=== PATIENT | male | born 1995 | race Caucasian/White ===

== ENCOUNTER 2021-04-16 11:00 | Emergency (ER) | payer OTHER ==
[~2021-04-16] VITALS: Ht 180.3 cm; Wt 67.0 kg
[2021-04-16] MEDS ORDERED: ALBUTEROL 90 MCG/ACT 8GM HFA INHALER INH ONE (15:45)
[2021-04-16 16:16] VITALS: O2SAT 100
--- NOTE | 2021-04-16 16:16 | REP ---
INDICATION: Coronavirus workup COMPARISON: None. TECHNIQUE: Portable AP view of the chest FINDINGS: The mediastinum and cardiac silhouette are stable and within normal limits for portable technique. The lung kohli are clear without acute consolidation, effusion, or pneumothorax. Skeletal structures are intact. IMPRESSION: No acute cardiopulmonary process appreciated. <Electronically signed by Kaleb Alvarado > 04/16/21 [id number]
[2021-04-16 16:25] LABS: HEMATOCRIT 47.8 % (42.0-52.0); HEMOGLOBIN 15.7 g/dl (13.5-17.5); MEAN CORPUSCULAR HEMOGLOBIN 28.8 pg (27.0-33.0); MEAN CORPUSCULAR HGB CONC 32.8 g/dl (32.0-36.5); MEAN CORPUSCULAR VOLUME 87.7 fl (80.0-96.0); PLATELET COUNT, AUTOMATED 123 10^3/uL (150-450); RED BLOOD COUNT 5.45 10^6/uL (4.30-6.10)
[2021-04-16 16:49] LABS: ALBUMIN 4.1 GM/DL (3.2-5.2); ALT/SGPT 454 U/L (12-78); BILIRUBIN,TOTAL 0.9 MG/DL (0.2-1.0); BLOOD UREA NITROGEN 13 MG/DL (7-18); CALCIUM LEVEL 9.6 MG/DL (8.5-10.1); CARBON DIOXIDE LEVEL 29 MEQ/L (21-32); CHLORIDE LEVEL 103 MEQ/L (98-107); CK-MB VALUE MASS < 1.0 NG/ML (<3.6); CPK CREATINE PHOSPHOKINASE 88 U/L (39-308); CREATININE FOR GFR 1.08 MG/DL (0.70-1.30); GLOMERULAR FILTRATION RATE > 60.0 (>60); GLUCOSE, FASTING 82 MG/DL (70-100); LDH LACTATE DEHYDROGENASE 778 U/L (87-241); MB/CK RELATIVE INDEX 1.14 (< OR =4); POTASSIUM SERUM 4.5 MEQ/L (3.5-5.1); SODIUM LEVEL 136 MEQ/L (136-145); TOTAL PROTEIN 8.4 GM/DL (6.4-8.2); TROPONIN I < 0.02 NG/ML (< 0.10)
[2021-04-16 16:55] LABS: ATYPICAL LYMPH 26 % (0-5); LYMPHOCYTES 57 % (16-44); MONOCYTES 3 % (0-5); MYELOCYTES 2 % (0-0); NEUTROPHILS 11 % (28-66)
[2021-04-16 16:56] LABS: PLATELET ESTIMATE DECREASED (NORMAL)
[2021-04-16 17:41] LABS: MONO REFLEX EBV COMP POSITIVE (NEGATIVE)
[2021-04-16] MEDS ORDERED: ISOVUE-370 76% 100ML VIAL As Ordered ONE (18:15)
--- NOTE | 2021-04-16 18:34 | REP ---
INDICATION: abd pain, elevated lfts, mono, check GB/liver/spleen please TECHNIQUE: Real time B-mode reed scale ultrasound examination using curved array transducer. FINDINGS: Liver, and pancreas are normal in contour, size, echogenicity, and overall appearance. No focal hepatic or pancreatic lesions are identified. Spleen measures 13.7 x 13.1 x 6.7 cm (splenic index: 1202) without focal splenic lesion identified. Gallbladder is normal without gallstones, wall thickening, or pericholecystic fluid. No biliary ductal dilatation is appreciated and the common bile duct measures 2.4 mm in diameter. The bilateral kidneys are normal in reniform shape without hydronephrosis or obvious abnormality. Right kidney measures 10.7 x 5.3 x 3.0 cm. Left kidney measures 9.6 x 4.6 x 3.6 cm. Abdominal aorta is normal and measures 2 cm maximal diameter. No ascites. IMPRESSION: Splenomegaly. Otherwise normal complete abdominal ultrasound. <Electronically signed by Kalbe Alvarado > 04/16/21 [id number]
--- NOTE | 2021-04-16 19:28 | REPVR ---
PROCEDURE INFORMATION: Exam: CTA Chest With Contrast Exam date and time: 04/16/2021 6:19 PM Age: 26 years old Clinical indication: Pain and abnormal findings; Abnormal diagnostic tests; Elevated d-dimer; Shortness of breath; Angina pectoris; Additional info: R/O pe, cp, SOB, elevated dimer TECHNIQUE: Imaging protocol: Computed tomographic angiography of the chest with contrast. 3D rendering (Not supervised by radiologist): MIP and/or 3D reconstructed images were created by the technologist. Radiation optimization: All CT scans at this facility use at least one of these dose optimization techniques: automated exposure control; mA and/or kV adjustment per patient size (includes targeted exams where dose is matched to clinical indication); or iterative reconstruction. Contrast material: ISOVUE 370; Contrast volume: 100 ml; Contrast route: INTRAVENOUS (IV); COMPARISON: CR PORTABLE CHEST X-RAY 04/16/2021 3:57 PM FINDINGS: Pulmonary arteries: No focal pulmonary artery filling defect to suggest acute pulmonary embolus. Pulmonary vascular/interstitial pattern does not suggest active pulmonary edema. Aorta: No thoracic aortic aneurysm or dissection. Lungs: No suspicious lung mass or air space process. No central endobronchial lesion. Pleural spaces: No pleural effusion or pneumothorax. Heart: No overt cardiac enlargement or abnormal volume of pericardial fluid. Mediastinal space: Residual thymic tissue is present in the anterior mediastinum. Lymph nodes: No enlarged lymph nodes. Intraperitoneal space: Limited visualization of upper abdomen shows no concerning finding. Bones/joints: Bony structures show no acute fracture or destructive process. Soft tissues: No asymmetric abnormality of the extrathoracic soft tissues. IMPRESSION: 1. No evidence of acute pulmonary embolus. 2. No other acute or concerning focal intrathoracic abnormality. Electronically signed by: Ramírez Rodriguez On 04/16/2021 19:27:50 PM
--- NOTE | 2021-04-16 19:30 | REPVR ---
PROCEDURE INFORMATION: Exam: CT Abdomen And Pelvis With Contrast Exam date and time: 04/16/2021 6:19 PM Age: 26 years old Clinical indication: Pain and abnormal findings; Abnormal lab test; Elevated lipase; Nausea; Abdominal pain; Generalized; Additional info: Elevated lfts, nausea, abd pain, elevated dimer TECHNIQUE: Imaging protocol: Computed tomography of the abdomen and pelvis with contrast. Radiation optimization: All CT scans at this facility use at least one of these dose optimization techniques: automated exposure control; mA and/or kV adjustment per patient size (includes targeted exams where dose is matched to clinical indication); or iterative reconstruction. Contrast material: ISOVUE 370; Contrast volume: 100 ml; Contrast route: INTRAVENOUS (IV); COMPARISON: ABD COMPLETE US 04/16/2021 6:05 PM FINDINGS: Liver: Liver appears normal with no focal abnormality. Gallbladder and bile ducts: Gallbladder is present and shows no evidence of gallstone. Pancreas: Pancreas appears normal. No focal mass or peripancreatic inflammation. Spleen: Spleen appears homogeneous without focal mass. Adrenal glands: Click adrenal glandsKidneys appear normal, with no stone, solid mass or hydronephrosis. Kidneys and ureters: See "Adrenal glands" finding. Stomach and bowel: No evidence of small bowel obstruction. No evidence of acute diverticulitis. Appendix: Appendix is not seen. No RLQ inflammation to suggest appendicitis. Intraperitoneal space: No pneumoperitoneum. Vasculature: No aortic aneurysm. Lymph nodes: No enlarged lymph nodes. Urinary bladder: Urinary bladder is distended. Reproductive: No overt enlargement of the prostate gland. Bones/joints: No effacement of normal fat planes in the ischiorectal fossa. Bony structures show no acute fracture or destructive process. Soft tissues: No concerning focal abnormality of the extra-abdominal and pelvic soft tissues. IMPRESSION: 1. No acute or concerning focal abdominal or pelvic process. 2. Nonvisualization of the appendix. Appendicitis cannot be excluded completely although there are no concerning secondary signs of appendicitis and appendicitis is felt to be unlikely Electronically signed by: Ramírez Rodriguez On 04/16/2021 19:29:29 PM
--- NOTE | 2021-04-16 21:40 | REPVR ---
PROCEDURE INFORMATION: Exam: US Duplex Lower Extremity Veins, Bilateral Exam date and time: 04/16/2021 9:22 PM Age: 26 years old Clinical indication: Abnormal findings; Abnormal lab test; Elevated d-dimer; Additional info: R/O dvt, elevated dimer TECHNIQUE: Imaging protocol: Real-time duplex ultrasound of the extremities with 2-D reed scale, color Doppler flow and spectral waveform analysis with image documentation. Complete exam focused on the bilateral lower extremity veins. COMPARISON: CT ABD/PEL W/IV CONTRAST ONLY 04/16/2021 6:17 PM FINDINGS: Right deep veins: Common femoral, femoral, proximal profunda femoral and popliteal veins are patent without thrombus. Normal Doppler waveforms. Normal compressibility and/or augmentation response. Right superficial veins: Saphenofemoral junction is patent without thrombus. Left deep veins: Common femoral, femoral, proximal profunda femoral and popliteal veins are patent without thrombus. Normal Doppler waveforms. Normal compressibility and/or augmentation response. Left superficial veins: Saphenofemoral junction is patent without thrombus. Soft tissues: No abnormal focal fluid collection. IMPRESSION: No evidence of deep vein thrombosis. Electronically signed by: Ramírez Rodriguez On 04/16/2021 21:40:12 PM
[2021-04-16 22:03] VITALS: BP 102/59
--- NOTE | 2021-04-16 22:13 | ECGEPIP ---
[facility] - ED Test Date: 2021-04-16 Pat Name: NEIDA RODRIGUEZ Department: Room: - Gender: Male [employer] Chief: RS : 1995 Requested By: SANDOVAL Pineda PA-C Order Number: [id number] Reading MD: Jan Blackburn Measurements Intervals Victor Rate: 66 P: 67 SC: 146 QRS: 83 QRSD: 76 T: 59 QT: 408 QTc: 427 Interpretive Statements Normal sinus rhythm with sinus arrhythmia Comparison tracing not on file Electronically Signed on 04-16-2021 22:13:01 EDT by Jan Blackburn
== END 2021-04-16 22:05 | disposition home or self-care (01) ==
LOC: M ED 11:00
DX: R50.9 Fever, unspecified (principal); B27.90 Infectious mononucleosis, unspecified without complication; R16.1 Splenomegaly, not elsewhere classified
CPT/HCPCS: 36415; 71045; 71275; 74177; 76700; 80053; 82550; 82553; 83615; 84484; 85025; 85379; 86308; 87430; 87798; 93005; 93970; 99284; Q9967